=== PATIENT | female | born 1985 | race Caucasian/White ===

== ENCOUNTER 2018-02-28 17:39 | Outpatient (CLI) | payer BC ==
[~2018-02-28 17:39] MED LIST: BENTYL20 MG PO; DILAUDID2 MG PO; Depakote ER (Extende PO; LEVAQUIN250 MG PO; LEXAPRO20 MG PO; NOHOMEMEDS; PROMETHAZINE HC25 M1 PO; TOPAMAX25 MG PO; Ultram PO; Vibramycin, Doryx PO; predniSONE PO
[2018-02-28 17:53] VITALS: BP 125/70
[2018-02-28 18:46] LABS: APPEARANCE SL.HAZY ((CLEAR)); BILIRUBIN NEGATIVE; BLOOD NEGATIVE; COLOR YELLOW ((YELLOW)); GLUCOSE (STRIP) NEGATIVE; KETONES NEGATIVE; LEUKOCYTES MODERATE; NITRITE NEGATIVE; PROTEIN (STRIP) NEGATIVE; SPECIFIC GRAVITY 1.006 (1.000-1.030); UROBILINOGEN 0.2 MG/DL (0.2-1.0)
[2018-02-28 19:11] LABS: BACTERIA RARE /HPF; EPITHELIAL CELLS 2+ /HPF; MUCUS NONE SEEN /LPF; RED BLOOD CELLS 0-5 /HPF (0-5); UCUL ADDED? NO; WHITE BLOOD CELLS 0-5 /HPF (0-5)
[2018-02-28] MEDS ORDERED: PRENATAL TABLE1 EAC3 PO (21:15)
== END 2018-02-28 21:30 | disposition home or self-care (01) ==
LOC: LDRP-OP 17:39 → 2WEST 17:41
PROVIDERS: Nurse Practitioner
DX: O26.892 Other specified pregnancy related conditions, second trimester (principal); R10.9 Unspecified abdominal pain; R35.0 Frequency of micturition; R30.0 Dysuria; Z3A.25 25 weeks gestation of pregnancy; O09.292 Supervision of pregnancy with other poor reproductive or obstetric history, second trimester
CPT/HCPCS: 59025; 81003; 82731; G0378

== ENCOUNTER 2018-03-04 19:11 | Outpatient (CLI) | payer BC ==
[~2018-03-04 19:11] MED LIST changes: +PRENATAL TABLE1 EAC3 PO
[2018-03-04 19:28] VITALS: BP 130/84
== END 2018-03-04 20:25 | disposition home or self-care (01) ==
LOC: LDRP-OP 19:11 → 2WEST 19:16 → LDRP-OP 07-07 21:52
DX: O36.8120 Decreased fetal movements, second trimester, not applicable or unspecified (principal); Z3A.26 26 weeks gestation of pregnancy
CPT/HCPCS: 59025; G0378

== ENCOUNTER 2018-04-09 16:57 | Outpatient (CLI) | payer BC ==
[~2018-04-09] VITALS: Ht 172.7 cm; Wt 86.0 kg
[2018-04-09 17:23] VITALS: BP 118/71
[2018-04-09] MEDS ORDERED: STRESS-C WITH1 EACH PO (17:32)
== END 2018-04-09 18:28 | disposition home or self-care (01) ==
LOC: LDRP-OP 16:57 → 2WEST 16:58 → LDRP-OP 07-07 20:43
DX: O36.8130 Decreased fetal movements, third trimester, not applicable or unspecified (principal); Z3A.31 31 weeks gestation of pregnancy
CPT/HCPCS: 59025; G0378